=== PATIENT | male | born 1950 | race Caucasian/White ===

== ENCOUNTER 2016-12-13 12:02 | Outpatient (CLI) | payer MEDICARE, OTHER ==
[~2016-12-13] VITALS: Ht 167.6 cm; Wt 93.0 kg
[~2016-12-13 12:02] MED LIST: AMOX-355 PO; ASP81TEC PO; ATEN50TA PO; ATOR40TA PO; AVOD0.5CAP PO; DAPA5TAB PO; FAMO20TA5 PO; FINA5TAB6 PO; FISH OIL 1,2001 EAC1 PO; HYDR-3731 PO; HYDR-757 PO; HYDR1TAB PO; IBUP200C92 PO; LISI20TA PO; METF500T4 PO; MTF500T PO; MULT1TAB34 PO; NIA500ERT PO; OXYC-12 PO; OXYC-197 PO
[2016-12-13 12:11] VITALS: BP 143/86
[2016-12-13] MEDS ORDERED: APIX5TAB PO (12:16)
== END 2016-12-13 12:35 | disposition home or self-care (01) ==
LOC: PREOP 12:02
PROVIDERS: ATTEND Surgery
DX: Z01.818 Encounter for other preprocedural examination (principal); L72.9 Follicular cyst of the skin and subcutaneous tissue, unspecified
CPT/HCPCS: 87081

== ENCOUNTER 2016-12-16 06:00 | Day surgery (SDC) | payer MEDICARE, OTHER ==
[~2016-12-16] VITALS: Ht 167.6 cm; Wt 93.0 kg
[~2016-12-16 06:00] MED LIST changes: +APIX5TAB PO
[2016-12-16] MEDS ORDERED: LACTATED RINGERS 1,000 ML IV PRN (06:20)
[2016-12-16 06:30] VITALS: BP 119/90
[2016-12-16] MEDS ORDERED: ceFAZolin 2 GM/50 ML NS 50 ML ONE (06:33)
[2016-12-16] MEDS ORDERED: ceFAZolin 2 GM/NS 50 ML IV ONE (07:00)
[2016-12-16] MEDS ORDERED: BUPIVACAINE 0.25% 30 ML (SENSORCAINE) VIAL ONE (07:08)
[2016-12-16] MEDS ORDERED: LIDOCAINE 1% INJ 20 ML (XYLOCAINE) VIAL ONE (07:08)
[2016-12-16] MEDS ORDERED: fentaNYL INJECTION 100 MCG/2 ML AMP ONE (07:11)
[2016-12-16] MEDS ORDERED: MIDAZOLAM 2 MG/2 ML (VERSED) VIAL ONE (07:11)
--- NOTE | 2016-12-16 07:54 | Progress Note-Pre Operative ---
Pre-Operative Progress Note H&P Reviewed The H&P was reviewed, patient examined and no changes noted. Date Seen by Provider: Dec 16, 2016 Time Seen by Provider: 07:45 Date H&P Reviewed: Dec 16, 2016 Time H&P Reviewed: 07:45 Pre-Operative Diagnosis: cyst back CYN AGUIRRE DO Dec 16, 2016 07:54
[2016-12-16] MEDS ORDERED: PROPOFOL INJECTION 50 ML IV ONE (08:37)
[2016-12-16] MEDS ORDERED: LACTATED RINGERS 1,000 ML IV ONE (08:37)
--- NOTE | 2016-12-16 09:17 | Progress Note-Post Operative ---
Post-Operative Progess Note Surgeon (s)/Soft Top Installer (s) Surgeon CYN AGUIRRE DO Soft Top Installer: NA Pre-Operative Diagnosis BACK CYST Post-Operative Diagnosis SAME Procedure & Operative Findings Date of Procedure 12/16/16 Procedure Performed/Findings EXCISION CYST BACK 4.5 X 3 CM Anesthesia Type MAC C LOCAL Estimated Blood Loss Estimated blood loss (mL): MIN Specimens/Packing Specimens Removed CYST CYN AGUIRRE DO Dec 16, 2016 09:17
--- NOTE | 2016-12-16 09:19 | Discharge Inst-Simple/Standard ---
Discharge Inst-Standard Patient Instructions/Follow Up Plan of Care/Instructions/FU: 12-14 DAYS CARLA Activity as Tolerated: Yes Discharge Diet: Regular Diet Other Inst to Patient Follow up Appt: Make appointment for 12-14 DAYS Instructions: No strenuous activity. May shower in 24 hours, no tub bath or soaking. Use incentive spirometer at home as directed. No Smoking Skin/Wound Care: May remove bandages IN 24 HOURS. Symptoms to Report: Appetite Changes, Extremity Discoloration, Numbness/Tingling, Swelling Increased , Bleeding Excessive, Eyesight Changes, Pain Increased, Urine Color Change, Constipation(Persistent), Fever over 101 degree F, Pain/Pressure in chest, Urinating Difficulty, Cough Up/Vomit Blood, Heart Beat Irreg/Pounding, Pain/ Pressure in jaw, Vaginal Bleeding Increase, Cramps in feet or legs, Lightheadedness, Pain/Pressure in shoulder, Diarrhea(Persistent), Memory Changes Suddenly, Questions/Concerns, Weight gain consecutive days, Dizziness/ Fainting, Nausea/Vomiting, Shortness of Breath, Weight gain over 2 pounds If questions or concerns contact your physician Or seek help at emergency department. CYN AGUIRRE DO Dec 16, 2016 09:19
[2016-12-16 09:20] VITALS: BP 136/85
[2016-12-16 09:50] VITALS: BP 121/79
--- NOTE | 2016-12-17 14:00 | OPERATIVE REPORT ---
DATE OF SERVICE: 12/16/2016 PREOPERATIVE DIAGNOSIS: Cyst of back. POSTOPERATIVE DIAGNOSIS: Cyst of back. PROCEDURE: Excision of cyst of back 4.5 x 3 cm. SURGEON: Cyn Emanuel DO ANESTHESIA: MAC with local. ESTIMATED BLOOD LOSS: Minimal. COMPLICATIONS: None. INDICATIONS: The patient is a 66-year-old male with a large cyst on his back. He understands risks and benefits of having it removed. The patient understands and wishes to proceed. Consent was signed and on the chart. DESCRIPTION OF PROCEDURE: The patient was taken to the operating suite, was prepped and draped in sterile fashion in the left lateral recumbent position. Timeout was performed. Local anesthetic was used to infiltrate into the area. A #15 blade scalpel was used to make an incision through the skin down to the subcutaneous tissues. The cyst was extremely fibrous and a lot of scar tissue present. This was continued to be dissected around both with blunt and sharp dissection. Once getting around the cyst, it was able to begin to be delivered through the incision. On the anterior surface there was a small hole made in the cyst which did leak out some of the cyst contents, but the entire cyst capsule was removed. Once the cyst was completely dissected around and removed copious amounts of irrigation was used to irrigate the wound. Hemostasis was achieved. The skin was then closed using 3-0 nylon in simple interrupted fashion. The area was then washed and dried and sterile bandage was applied. The patient tolerated procedure well without any complications and was taken to recovery room in stable condition. Job ID: [id number] DocumentID: [id number] Dictated Date: 12/17/2016 09:02:40 [employer] [employer] Date: 12/17/2016 13:59:50 Dictated By: CYN EMANUEL DO
== END 2016-12-16 10:00 | disposition home or self-care (01) ==
LOC: SDC 06:00
PROVIDERS: ATTEND Surgery
DX: L72.0 Epidermal cyst (principal); I48.0 Paroxysmal atrial fibrillation; I25.10 Atherosclerotic heart disease of native coronary artery without angina pectoris; E78.5 Hyperlipidemia, unspecified; I10 Essential (primary) hypertension; E66.9 Obesity, unspecified; E11.9 Type 2 diabetes mellitus without complications; J44.9 Chronic obstructive pulmonary disease, unspecified; G47.33 Obstructive sleep apnea (adult) (pediatric); F17.210 Nicotine dependence, cigarettes, uncomplicated; C67.9 Malignant neoplasm of bladder, unspecified; Z95.1 Presence of aortocoronary bypass graft; Z79.01 Long term (current) use of anticoagulants; Z79.82 Long term (current) use of aspirin
CPT/HCPCS: 82962; 88304

== ENCOUNTER → 2019-05-16 | Outpatient (CLI) | payer MEDICARE, OTHER ==
[~2019-05-16] MED LIST changes: +HYDR-4226 PO; -HYDR-757 PO; +METF-397 PO; -METF500T4 PO; -OXYC-197 PO; +OXYC1TAB87 PO
--- NOTE | 2019-05-16 17:07 | Diagnostic Imaging Report ---
EXAMINATION: Right shoulder 2 or more views. HISTORY: Fell and hurt right shoulder. COMPARISON: 08/02/2008. FINDINGS: Suture anchors are seen in the right shoulder. There is superior subluxation of the right glenoid head with remodeling of the undersurface of the acromion suggestive of rotator cuff arthropathy. No fracture is seen. IMPRESSION: 1. Superior subluxation of the right humeral head with remodeling of the undersurface of the acromion suggestive of rotator cuff arthropathy. 2. No acute fracture. Dictated by: Dictated on workstation # [id number]
== END ==
LOC: RAD 16:49
PROVIDERS: ATTEND Family Medicine
DX: S43.001A Unspecified subluxation of right shoulder joint, initial encounter (principal); W19.XXXA Unspecified fall, initial encounter
CPT/HCPCS: 73030

== ENCOUNTER → 2019-06-12 | Outpatient (CLI) | payer MEDICARE, OTHER ==
[~2019-06-12] MED LIST changes: +GADOBUTROL 10 MMOL/10 ML (GADAVIST) VIAL IV ONE
[2019-06-12 09:40] LABS: BUN/CREATININE RATIO 16; CREATININE SERUM 0.86 MG/DL (0.60-1.30); GFR ESTIMATED > 60
--- NOTE | 2019-06-12 10:32 | Diagnostic Imaging Report ---
PROCEDURE: MR imaging of the brain with and without contrast. TECHNIQUE: Multiplanar, multisequence MR imaging of the brain was performed with and without contrast. Additional dedicated sequences of the internal auditory canals was performed. INDICATION: Fell and hit head one and a half months ago. Persistent headaches. COMPARISON: none Findings: No acute ischemia, mass, or hemorrhage. No abnormal enhancement. A few scattered areas of T2/FLAIR hyperintense signal are seen in the periventricular and subcortical white matter. The ventricles and cortical sulci are prominent. The basilar cisterns are symmetric and unremarkable. The sellar and suprasellar regions have a normal appearance. The bilateral internal auditory canals have a symmetric and unremarkable appearance. The course of the 7th and 8th cranial nerves is unremarkable. No evidence of enhancing mass along the course of the 7th and 8th cranial nerves. No CPA masses are seen. The bilateral inner ear structures have an unremarkable MRI appearance. The brainstem and posterior fossa are unremarkable. Bilateral mastoid effusions are present. Mucosal thickening and a fluid level are seen throughout the right maxillary sinus. The globes and orbits are symmetric and unremarkable. The scalp and calvarium have a normal appearance. Impression: 1. No acute ischemia, mass, or hemorrhage. No abnormal enhancement. 2. Unremarkable appearance of the 7th and 8th cranial nerves. No abnormal enhancement or CPA masses are seen. 3. Acute sinusitis involving the right maxillary sinus. 4. Bilateral mastoid effusions. 5. Small amount of chronic microvascular disease with generalized parenchymal volume loss. Dictated by: Dictated on workstation # [id number]
== END ==
LOC: RAD 09:02
PROVIDERS: ATTEND Otolaryngology Otolaryngology/Facial Plastic Surgery
DX: J01.00 Acute maxillary sinusitis, unspecified (principal); S09.90XD Unspecified injury of head, subsequent encounter; H74.8X3 Other specified disorders of middle ear and mastoid, bilateral; I67.82 Cerebral ischemia
CPT/HCPCS: 36415; 70553; 82565; 84520

== ENCOUNTER → 2019-10-01 | Outpatient (CLI) | payer MEDICARE, OTHER ==
[~2019-10-01] MED LIST changes: +ACET-2267 PO; +ASPI-999 PO; +ATOR40TA70 PO; +DILT180C85 PO; +FAMO20TA3 PO; +GABA300C PO; -GADOBUTROL 10 MMOL/10 ML (GADAVIST) VIAL IV ONE; +HYDR-34 PO; +HYDR-3820 PO; +HYDR-3870 PO; +LISI40TA PO; +METO100T12 PO; +TOBR5DRO12 EACH EAR
--- NOTE | 2019-10-01 15:52 | Diagnostic Imaging Report ---
INDICATION: Lytic lesions of the ribs. TECHNIQUE: Patient was administered 26.0 mCi technetium 99m MDP intravenously and whole body imaging was performed after a three-hour delay. COMPARISON: Correlation is made with recent CT chest, abdomen, and pelvis study from 09/19/2019. FINDINGS: There is uptake of activity about the axial and appendicular skeleton. There is uptake by the kidneys with excretion into the urinary bladder. Several foci of uptake are identified involving the left-sided anterior ribs. There is also abnormal uptake involving the mid and lower thoracic vertebrae. This corresponds to lytic lesions noted on CT. There is uptake involving the lateral aspect of a right rib, corresponding with a lytic lesion. IMPRESSION: Abnormal whole body bone scan demonstrating multiple foci of uptake, corresponding to the lytic lesions noted on CT. This is suspicious for metastatic disease or myeloma. Dictated by: Dictated on workstation # [id number]
== END ==
LOC: CARD 12:02
PROVIDERS: ATTEND Family Medicine
DX: M89.8X8 Other specified disorders of bone, other site (principal)
CPT/HCPCS: 78306; A9503